=== PATIENT | female | born 2005 | race Caucasian/White ===

== ENCOUNTER 2023-06-08 11:42 | Emergency (ER) | payer BC, SELFPAY ==
[2023-06-08 11:56] VITALS: BP 164/100; PULSE 101; RESP 20; TEMP 36.9; O2SAT 97; BMI 32.3
--- NOTE | 2023-06-08 12:04 | ECG_ITS ---
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 Measurements Intervals [place] Rate: 102 P: 34 [place]: 146 QRS: 64 QRSD: 76 T: 8 QT: 332 QTc: 434 Interpretive Statements SINUS TACHYCARDIA POSSIBLE LEFT ATRIAL ENLARGEMENT [-0.1mV P-WAVE IN V1/V2] NONSPECIFIC T-WAVE ABNORMALITY No previous ECG available for comparison Electronically Signed On 06-09-2023 9:39:49 CDT by Kalia Valdez M.D. [id number]
[2023-06-08 13:22] VITALS: BP 159/105; PULSE 103; RESP 15; O2SAT 97
--- NOTE | 2023-06-08 13:25 | W.ED.SYNCOPE ---
HPI - Syncope General: Chief Complaint: Syncope Stated Complaint: passed out Time Seen by Provider: 06/08/23 13:13 Source: patient Mode of arrival: ambulatory History of Present Illness: 17-year-old female presents to the emergency room complaining of a episode of passing out. She was sitting at rest when it happened. She has had this multiple times before she usually has it when she stands or when she is active. She is in the midst of an evaluation report currently has a Holter monitor in place. She denies any chest pain or tightness. There is no loss of bowel or bladder control she is awake and alert and symptom-free at this time. No tonic-clonic movements or seizure-like activity was noted MD complaint: loss of consciousness Onset (ago): minute(s) Prodromal symptoms: none Witnessed: Yes - by Bystander Context: at rest Injuries sustained associated with event: none Associated symptoms: Deny abdominal pain, chest pain, fever(s), headache(s), lightheadedness, nausea, short of breath, vertigo or weakness Treatments prior to arrival: none Review of Systems Const: Denies: fever(s), chills, fatigue or malaise ENMT: Denies: throat pain, ear or mastoid pain, nasal discharge or nasal congestion Card: Denies: chest pain or lightheadedness Resp: Denies: dyspnea, productive cough or non-productive cough GI: Denies: abdominal pain or nausea : Denies: flank pain, difficulty voiding, dysuria, urinary frequency or urinary urgency Skin/Breast: Denies: rash or pruritus Neuro: Denies: headache(s) or vertigo PFS ED PFSH: Medical History Adolescent depression Started fluoxetine at [facility] approximately January 2021 Neurofibromatosis, 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 and neurofibromatosis clinic and ophthalmology every other year Physical Exam Const: COMMON NORMALS: no acute distress GENERAL APPEARANCE: cooperative and comfortable ORIENTATION/CONSCIOUSNESS: Yes awake, Yes oriented to person, Yes oriented to place and Yes oriented to time HENMT: COMMON NORMALS: normocephalic, atraumatic and hearing grossly normal bilaterally HEAD & SCALP: normocephalic and atraumatic Resp: COMMON NORMALS: normal respiratory effort, No retractions, No use of accessory muscles and clear to auscultation bilaterally AUSCULTATION: clear to auscultation bilaterally Cardio: COMMON NORMALS: regular rate, regular rhythm and No murmurs present (Cardio) RATE: regular rate RHYTHM: regular rhythm GI: COMMON NORMALS: Soft to palpation and No hepatosplenomegaly present AUSCULTATION: Yes normoactive bowel sounds PALPATION: Yes Soft to palpation, No Tenderness to palpation present (GI), No Guarding due to palpation present (GI) and Yes No hepatosplenomegaly present Extremity: COMMON NORMALS: normal to inspection, capillary refill normal, no clubbing, cyanosis or edema, no calf tenderness and no pedal edema Neuro: SENSORIUM/ORIENTATION: Yes oriented to person, Yes oriented to place and Yes oriented to time Skin: COMMON NORMALS: no rashes or lesions noted GENERAL SKIN EXAM: no rashes or lesions noted Course Vital Signs: Vital signs: Vital Signs Temperature 98.5 F 06/08/23 11:56 Pulse Rate 115 H 06/08/23 15:07 Respiratory Rate 18 06/08/23 15:07 Blood Pressure 149/90 06/08/23 15:07 Pulse Oximetry 96 06/08/23 15:07 Oxygen Delivery Me thod Room Air 06/08/23 15:07 MDM - Syncope Medical Decision Making Labs imaging and EKG were unremarkable. In talking to her and her family sounds like syncopal episodes like she had in the past she is in the midst of work-up for this. She was in a mild sinus tachycardia when she arrived to this as persisted but they state that is always been the case for her. This not unusual. Recommend completing the outpatient work-up as initiated return if has further problems Medical Records I reviewed the patient's medical records. Lab Data I reviewed the patient's lab results. 06/08/23 14:15 06/08/23 13:35 Laboratory Results WBC 12.01 10^3/uL (4.5-13.0) 06/08/23 14:15 Corrected WBC Cancelled 06/08/23 13:35 RBC 4.17 10^6/uL (3.85-5.65) 06/08/23 14:15 Hgb 11.60 g/dL (12.4-14.8) L 06/08/23 14:15 Hct 35.6 % (36-47) L 06/08/23 14:15 MCV 85.4 fl (85-98) 06/08/23 14:15 MCH 27.8 pg (27-33) 06/08/23 14:15 MCHC 32.6 g/dL (30-55) 06/08/23 14:15 RDW 12.4 % (12.1-15.1) 06/08/23 14:15 Plt Count 372 10^3/cmm (157-399) 06/08/23 14:15 MPV 9.7 fL (7.4-10.4) 06/08/23 14:15 Gran % Cancelled 06/08/23 13:35 Neut % (Auto) 71.8 % 06/08/23 14:15 Lymph % (Auto) 20.4 % 06/08/23 14:15 [place] % (Auto) 5.9 % 06/08/23 14:15 Eos % (Auto) 1.1 % 06/08/23 14:15 Baso % (Auto) 0.5 % 06/08/23 14:15 Neut # (Auto) 8.62 10^3/uL (1.8-8.0) H 06/08/23 14:15 Lymph # (Auto) 2.5 10^3/uL (1.5-6.5) 06/08/23 14:15 [place] # (Auto) 0.7 10^3/uL (0.2-0.9) 06/08/23 14:15 Eos # (Auto) 0.1 10^3/uL (0.0-0.8) 06/08/23 14:15 Baso # (Auto) 0.1 10^3/uL (0.0-0.1) 06/08/23 14:15 Absolute Gran (auto) Cancelled 06/08/23 13:35 Nucleated RBC % (auto) 0 % 06/08/23 14:15 Nucleated RBCs # 0.0 /100WBC 06/08/23 14:15 Sodium 138 mmol/L (136-145) 06/08/23 13:35 Potassium 4.1 mmol/L (3.5-5.1) 06/08/23 13:35 Chloride 102 mmol/L (98-107) 06/08/23 13:35 Carbon Dioxide 25 mmol/L (22-29) 06/08/23 13:35 Anion Gap 15.1 (5-19) 06/08/23 13:35 BUN 8 mg/dL (6-20) 06/08/23 13:35 Creatinine 0.7 mg/dL (0.5-0.9) 06/08/23 13:35 GFR Calculation 107.8 mL/min (90-130) 06/08/23 13:35 Glucose 90 mg/dL (65-115) 06/08/23 13:35 Calculated Osmolality 284 mOsm/kg (285-295) L 06/08/23 13:35 Calcium 9.6 mg/dL (8.5-10.5) 06/08/23 13:35 Total Bilirubin 0.2 mg/dL (0.15-1.2) 06/08/23 13:35 AST 25 U/L (0-32) 06/08/23 13:35 ALT 40 U/L (0-33) H 06/08/23 13:35 Alkaline Phosphatase 76 U/L (35-105) 06/08/23 13:35 Total Protein 8.7 g/dL (6.6-8.7) 06/08/23 13:35 Albumin 4.6 g/dL (3.5-5.2) 06/08/23 13:35 Globulin 4.1 g/dL (1.3-4.6) 06/08/23 13:35 No radiology studies performed this visit Discharge Plan Discharge Patient Disposition: Home Clinical Impression: Syncope, Sinus tachycardia Condition: Stable Prescriptions: No Action norgestimate-ethinyl estradiol [Sprintec (28)] 0.25-35 mg-mcg tablet 1 tab PO QPM fluoxetine 10 mg tablet 10 mg PO QPM amitriptyline 25 mg tablet 25 mg PO QPM Vitamin D3 25 mcg (1,000 unit) Tablet 25 mcg PO QPM Women's Multivitamin Gummies 120 mcg Tablet,Chewable 1 tab PO QPM levalbuterol tartrate 45 mcg/actuation HFA aerosol inhaler 1 puff INHALATION DAILY aripiprazole 2 mg tablet 2 mg PO QPM Discharge Orders: Discharge ED (Routine); Ordered 09/29/23 Ordered By: Delmar Osei Referrals: Neisha Pressley PA [Primary Care Provider] - Discharge Diet: Usual diet Discharge Activity: Resume usual activity Patient Instructions: Opioid Safety, Pain Management Activity Restrictions/Additional Instructions: Follow-up with your primary care doctor to complete the outpatient work-up for syncope that has been initiated. Coding Level of Care Code ED Waffle Machine Operator for Maira Catalan
[2023-06-08 13:36] VITALS: BP 137/100; PULSE 114; RESP 18; O2SAT 99
[2023-06-08] MEDS: sodium chloride 0.9% 1,000 ML 999 ML IV (13:41)
[2023-06-08 14:08] LABS: Alanine Aminotransferase 40 U/L (0-33); Albumin Level 4.6 g/dL (3.5-5.2); Alkaline Phosphatase 76 U/L (35-105); Blood Urea Nitrogen 8 mg/dL (6-20); Calcium 9.6 mg/dL (8.5-10.5); Carbon Dioxide 25 mmol/L (22-29); Chloride 102 mmol/L (98-107); Globulin 4.1 g/dL (1.3-4.6); Glomerular Filtration Rate 107.8 mL/min (90-130); Glucose 90 mg/dL (65-115); Osmolality Calculated 284 mOsm/kg (285-295); Sodium 138 mmol/L (136-145); Total Bilirubin 0.2 mg/dL (0.15-1.2); Total Protein 8.7 g/dL (6.6-8.7)
[2023-06-08 14:09] LABS: Anion Gap 15.1 (5-19); Aspartate Amino Transferase 25 U/L (0-32); Potassium 4.1 mmol/L (3.5-5.1)
[2023-06-08 14:20] LABS: Basophils # 0.1 10^3/uL (0.0-0.1); Basophils % 0.5 %; Eosinophils # 0.1 10^3/uL (0.0-0.8); Eosinophils % 1.1 %; Hematocrit 35.6 % (36-47); Lymphocytes # 2.5 10^3/uL (1.5-6.5); Lymphocytes % 20.4 %; Mean Corpuscular HGB Conc 32.6 g/dL (30-55); Mean Corpuscular Hemoglobin 27.8 pg (27-33); Mean Corpuscular Volume 85.4 fl (85-98); Mean Platelet Volume 9.7 fL (7.4-10.4); Monocytes # 0.7 10^3/uL (0.2-0.9); Monocytes % 5.9 %; Neutrophils # 8.62 10^3/uL (1.8-8.0); Neutrophils % 71.8 %; Nucleated Red Blood Cells % 0 %; Platelet Count 372 10^3/cmm (157-399); Red Blood Count 4.17 10^6/uL (3.85-5.65); Red Cell Distribution Width 12.4 % (12.1-15.1); White Blood Count 12.01 10^3/uL (4.5-13.0)
[2023-06-08 15:05] VITALS: BP 138/87; BP 149/90; BP 164/92; PULSE 115; PULSE 130; PULSE 141
[2023-06-08 15:07] VITALS: BP 149/90; PULSE 115; RESP 18; O2SAT 96
== END 2023-06-08 15:57 | disposition home or self-care (01) ==
PROVIDERS: Emergency Provider Family Medicine; PCP Physician Assistant
DX: R55 Syncope and collapse (principal); R00.0 Tachycardia, unspecified
CPT/HCPCS: 80053; 85025; 93005; 99284; J7030

== ENCOUNTER 2024-01-08 08:51 | Emergency (ER) | payer BC, SELFPAY ==
[2024-01-08 08:58] VITALS: BP 132/89; PULSE 123; RESP 16; TEMP 36.7; O2SAT 98
--- NOTE | 2024-01-08 08:59 | XR_ITS ---
WS: [id number] XR chest 1V portable [id number] REASON FOR EXAM: covid, sob FINDINGS: The heart and the mediastinum are within normal limits. Calcified granulomas disease in both hemithoraces. No acute pulmonary parenchymal or pleural abnormality is identified. Bony thorax intact. XR/XR chest 1V portable [id number] IMPRESSION: No acute chest abnormality.
--- NOTE | 2024-01-08 09:37 | W.ED.COVID ---
HPI - COVID General: Chief Complaint: General Medical Stated Complaint: Covid+, sob Time Seen by Provider: 01/08/24 08:55 Source: patient Mode of arrival: ambulatory Limitations: no limitations Triage information: Has fever, cough or shortness of breath. Exposure to COVID + person last 14 days History of Present Illness: Patient is a 18-year-old female with a history of asthma here with complaints of a cough and shortness of breath. She states she first began noticing symptoms approximately 3 days ago. She states the day following symptom onset she tested for COVID via home rapid antigen testing which came back positive. She states this time a year with all of the pollen she has to use her rescue albuterol inhaler more frequently with her asthma and feels like her symptoms are now compounded with her COVID. She is not running fevers. She has no other complaints apart from the cough and dyspnea. She does have baseline sinus tachycardia that she is currently undergoing evaluation for. She has no complaints of leg swelling or calf pain. MD complaint: known COVID positive Prior covid testing: yes, results known Prior testing date: 01/06/24 COVID 19 common symptoms: positive cough, non-productive cough and dyspnea; negative fever(s), chills, fatigue, body aches, headache(s), throat pain, nasal congestion, nausea, vomiting or diarrhea COVID 19 other sytmptoms: negative chest pain or dizziness Onset (ago): day(s) Severity: moderate Pertinent comorbid conditions: COPD/respiratory disease (asthma) and obesity Treatment prior to arrival: other (albuterol ) COVID Results: No Data to Display Review of Systems Const: Denies: fever(s), chills, body aches or fatigue Eyes: Denies: change in vision, blurry vision, photophobia, eye discomfort or eye discharge ENMT: Denies: throat pain, enlarged tonsils, odynophagia, swelling of lips/tongue, oral sores, ear or mastoid pain, ear discharge, nasal discharge, nasal congestion, post nasal drip or sinus pain Card: Reports: dyspnea on exertion; Denies: chest pain, palpitations, irregular heart rhythm, edema, swelling of feet/ankles, lightheadedness, syncope, pre-syncope, orthopnea, leg pain with exertion or acrocyanosis Resp: Reports: dyspnea and non-productive cough; Denies: wheezing, change in phlegm color or hemoptysis GI: Denies: abdominal pain, nausea, vomiting or diarrhea Musc: Denies: neck pain, back pain, extremity pain or joint pain Skin/Breast: Denies: rash Neuro: Denies: headache(s), numbness in extremities, weakness in extremities, sensory changes or dizziness All/Imm: Denies: facial swelling or seasonal rhinorrhea PFSH ED PFSH: Medical History Adolescent depression Started fluoxetine at [facility] approximately January 2021 Neurofibromatosis, 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 and neurofibromatosis clinic and ophthalmology every other year Physical Exam Const: COMMON NORMALS: no acute distress, patient oriented x3, no limitations, alert and well nourished GENERAL APPEARANCE: cooperative NUTRITIONAL APPEARANCE: obese (BMI over 32) HENMT: COMMON NORMALS: normocephalic and atraumatic HEAD & SCALP: normal to inspection, normocephalic and atraumatic FACE & SINUS: normal facial exam and sinuses nontender Eye: GENERAL EYE: appearance normal, both eyes and all related structures Neck/C-Spine: COMMON NORMALS: full ROM, no lymphadenopathy, supple and no meningeal signs Chest: COMMONS NORMALS: normal inspection of the chest Resp: COMMON NORMALS: normal respiratory effort and clear to auscultation bilaterally AUSCULTATION: clear to auscultation bilaterally Cardio: COMMON NORMALS: regular rhythm RATE: tachycardic RHYTHM: regular rhythm Extremity: COMMON NORMALS: normal to inspection, no clubbing, cyanosis or edema, no calf tenderness and no pedal edema GENERAL: Yes normal exam except as noted Neuro: COMMON NORMALS: patient oriented x3 SENSORIUM/ORIENTATION: Yes alert MENINGEAL SIGNS: Yes no meningeal signs Course Vital Signs: Vital signs: Vital Signs Temperature 98.0 F 01/08/24 08:58 Pulse Rate 123 H 01/08/24 08:58 Respiratory Rate 16 01/08/24 08:58 Blood Pressure 132/89 01/08/24 08:58 Pulse Oximetry 98 01/08/24 08:58 MDM - COVID Medical Decision Making Patient here complaining of cough and dyspnea with known positive COVID status via home antigen testing 2 days ago. She has baseline sinus tachycardia and is tachycardic here. She is satting 98 to 99% on room air and appears in no acute distress during my examination. Patient does have comorbidities including obesity and asthma therefore we will place her on Paxlovid and Dexamethasone. She can continue home albuterol as needed. Return ED precautions given. CXR is unremarkable. Differential Diagnosis Likely COVID 19 Lab Data No Data to Display XR interpretation done by ED provider, pending radiology final review Discharge Plan Discharge Patient Disposition: Home Clinical Impression: COVID Condition: Stable Prescriptions: New Paxlovid 300 mg (150 mg x 2)-100 mg tablets,dose pack See Rx Instructions .ROUTE .COMPLEX Qty: 30 0RF Rx Instructions: take TWO 150 mg tablets of nirmatrelvir with ONE 100 mg tablet of ritonavir twice daily for 5 days dexamethasone 6 mg tablet 6 mg PO DAILY Qty: 6 0RF No Action norgestimate-ethinyl estradiol [Sprintec (28)] 0.25-35 mg-mcg tablet 1 tab PO QPM fluoxetine 10 mg tablet 10 mg PO QPM amitriptyline 25 mg tablet 25 mg PO QPM Vitamin D3 25 mcg (1,000 unit) Tablet 25 mcg PO QPM Women's Multivitamin Gummies 120 mcg Tablet,Chewable 1 tab PO QPM levalbuterol tartrate 45 mcg/actuation HFA aerosol inhaler 1 puff INHALATION DAILY aripiprazole 2 mg tablet 2 mg PO QPM Discharge Orders: Discharge ED (Routine); Ordered 01/08/24 Ordered By: Oliva Arreaga Referrals: Neisha Pressley PA [Primary Care Provider] - Patient Instructions: Nirmatrelvir/Ritonavir (By mouth) (Paxlovid), COVID-19 (Coronavirus Disease 2019) (ED) Coding Level of Care Code ED Embedded Linux Engineer for Maira Catalan
== END 2024-01-08 09:49 | disposition home or self-care (01) ==
PROVIDERS: Emergency Provider Physician Assistant; PCP Physician Assistant
DX: U07.1 COVID-19 (principal)
CPT/HCPCS: 71045; 99283